=== PATIENT | female | born 1975 | race African-American/Black ===

== ENCOUNTER 2019-09-03 07:15 | Emergency (ER) | payer BC ==
[2019-09-03] MEDS ORDERED: METHYLPREDNISOLONE 125 MG INJ ONE (07:33)
[2019-09-03 07:52] LABS: Absolute Lymphocytes (CBC) 1.3 K/uL (0.7-4.9); Basophils % 1.1 % (0-1.3); Lymphocytes % 27.4 % (15.3-44.8); MPV 8.9 fL (7.6-11.3); Protime INR 1.15
[2019-09-03 08:06] LABS: ALT/SGPT 20 U/L (12-78); AST/SGOT 14 U/L (15-37); Albumin 3.7 g/dL (3.4-5.0); Alkaline Phosphatase 49 U/L (45-117); BUN Blood Urea Nitrogen 9 mg/dL (7-18); Bicarbonate 23 mmol/L (21-32); Bilirubin Direct 0.1 mg/dL (0-0.2); Bilirubin Total 0.6 mg/dL (0.2-1.0); Glucose Level 119 mg/dL (74-106); Magnesium 2.1 mg/dL (1.8-2.4); NT PRO-BNP 18 pg/mL (<125); Potassium 3.3 mmol/L (3.5-5.1); Protein, Total 8.1 g/dL (6.4-8.2); Sodium Level 141 mmol/L (136-145); Troponin (Emerg Dept Use Only) < 0.02 ng/mL (0.0-0.045)
--- NOTE | 2019-09-03 08:20 | RAD REPORT ---
EXAM DESCRIPTION: Breanna Single View09/03/2019 7:49 am CLINICAL HISTORY: Chest pain COMPARISON: none FINDINGS: The lungs appear clear of acute infiltrate. The heart is normal size IMPRESSION: No acute abnormalities displayed
--- NOTE | 2019-09-03 08:53 | RAD REPORT ---
EXAM DESCRIPTION: USCarotid Artery Bilateral09/03/2019 8:30 am CLINICAL HISTORY: Syncope COMPARISON: None FINDINGS: The velocity of the right internal carotid artery equals 119 cm/sec. The right ICA/CCA rat io 1.2 The velocity of the left internal carotid artery equals 106 cm/sec. The left ICA/CCA ratio 1.2 Plaque is not visualized within the carotid arteries The vertebral arteries demonstrate antegrade flow IMPRESSION: Unremarkable examination NASCET criteria used. Mild 0-49% stenosis Moderate 50-69% stenosis Severe 70-99% stenosis
--- NOTE | 2019-09-03 09:25 | ER ---
Nurse's Notes [facility] Name: Kitty Salas Age: 44 yrs Sex: Female : 1975 Arrival Date: 09/03/2019 Time: 07:15 Bed 13 Private MD: Nael Woods V Diagnosis: Chest pain, unspecified Presentation: 09/03 07:23 Presenting complaint: Substernal chest pain that radiates to left upper chest and jaw x hb 3 days. Pt reports she was seen by Dr. Woods 2 days ago for same s/s, told she had abnormal EKG, sent for blood work and started on Zoloft. Transition of care: patient was not received from another setting of care. Onset of symptoms was August 31, 2019. Risk Assessment: Do you want to hurt yourself or someone else? Patient reports no desire to harm self or others. Initial Sepsis Screen: Does the patient meet any 2 criteria? No. Patient's initial sepsis screen is negative. Does the patient have a suspected source of infection? No. Patient's initial sepsis screen is negative. Care prior to arrival: None. 07:23 Method Of Arrival: Ambulatory hb 07:23 Acuity: JADE 3 hb Triage Assessment: 09:58 General: Appears Behavior is calm. Pain: Denies pain. 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 - Social history:: Smoking status: Patient/guardian denies using tobacco. - Ebola Screening: : No symptoms or risks identified at this time. Screenin:16 Abuse screen: Denies threats or abuse. Denies injuries from another. Nutritional iw screening: No deficits noted. Tuberculosis screening: No symptoms or risk factors identified. Fall Risk Assessment: 07:50 General: Appears in no apparent distress. well groomed, well developed, well nourished, sg Behavior is calm, cooperative, appropriate for age. Pain: Complains of pain in anterior aspect of left upper chest Quality of pain is described as sharp. Neuro: Level of Consciousness is awake, alert, obeys commands, Oriented to person, place, time, Kennel Supervisor are equal bilaterally Speech is normal, Facial symmetry appears normal. Cardiovascular: Patient's skin is warm and dry. Chest pain is described as vague, is located in left anterior chest wall radiates jaw(s) neck. Respiratory: Airway is patent Respiratory effort is even, unlabored, Respiratory pattern is regular, symmetrical. GI: No signs and/or symptoms were reported involving the gastrointestinal system. : No signs and/or symptoms were reported regarding the genitourinary system. EENT: No signs and/or symptoms were reported regarding the EENT system. Derm: Skin is pink, warm \T\ dry. Musculoskeletal: No signs and/or symptoms reported regarding the musculoskeletal system. 08:44 Reassessment: Patient appears in no apparent distress at this time. Adele at bedside sg for ECHO. 09:15 Reassessment: Patient appears in no apparent distress at this time. Patient and/or iw family updated on plan of care and expected duration. Pain level reassessed. Patient is alert, oriented x 3, equal unlabored respirations, skin warm/dry/pink. pt awaiting results. Vital Signs: 07:25 BP 139 / 78; Pulse 55; Resp 16; Temp 97.8; Pulse Ox 100% on R/A; Weight 102.06 kg; hb Height 6 ft. 2 in. (187.96 cm); Pain 8/10; 09:30 BP 136 / 77; Pulse 56; Resp 17; Temp 97.7; Pulse Ox 100% on R/A; sg 07:25 Body Mass Index 28.89 (102.06 kg, 187.96 cm) ED Course: 07:15 Patient arrived in ED. rg4 07:15 Nael Woods MD is Private Physician. rg4 07:18 Brandon Mayo MD is Attending Physician. bertha 07:18 Paulino Dennis, EBONY is Primary Nurse. sg 07:24 Triage completed. hb 07:25 [facility] mh5 07:25 Arm band placed on. hb 07:48 XRAY Chest (1 view) In Process Unspecified. EDMS 08:13 Initial lab(s) drawn, by me, sent to lab. Inserted saline lock: 20 gauge in left mh5 antecubital area, using aseptic technique. Blood collected. 08:14 Patient has correct armband on for positive identification. Placed in gown. Bed in low mh5 position. Call light in reach. Side rails up X2. Warm blanket given. library monitor on. Pulse ox on. NIBP on. 08:30 Carotid Artery Bilateral US In Process Unspecified. EDMS 09:24 Nael Woods MD is Referral Physician. snw 09:57 No provider procedures requiring assistance completed. IV discontinued, intact, iw bleeding controlled, No redness/swelling at site. Pressure dressing applied. Patient maintains SpO2 saturation greater than 95% on room air. Administered Medications: No medications were administered Outcome: 09:25 Discharge ordered by . snw 09:57 Discharged to home ambulatory, with family. iw 09:57 Condition: good 09:57 Discharge instructions given to patient, family, Instructed on discharge instructions, follow up and referral plans. medication usage, Demonstrated understanding of instructions, follow-up care, medications, Prescriptions given X 1. 09:58 Patient left the ED. iw Signatures: Dispatcher [employer] EDMS Paulino Dennis, Brandon Cortez RN, MD MD cha Therrien, Shelly, NITROCELLULOSE MAKER-C NITROCELLULOSE MAKER-Csnw Diana Hand, Sophia Cavazos RN, RN RN hb Garcia, Rubi [place] [id number]
--- NOTE | 2019-09-03 09:25 | EDPHYS ---
Physician Documentation [facility] Name: Kitty Salas Age: 44 yrs Sex: Female : 1975 Arrival Date: 09/03/2019 Time: 07:15 Bed 13 Private MD: Nael Woods V ED Physician Brandon Mayo HPI: 09/03 08:34 This 44 yrs old Black Female presents to ER via Ambulatory with complaints of Chest snw Pain. 08:34 The patient or guardian reports chest pain that is located primarily in the anterior snw chest wall, left. Onset: gradually, 1 week(s) ago, and became persistent. The pain does not radiate. Associated signs and symptoms: Pertinent positives: lightheadedness. The chest pain is described as squeezing. Duration: The patient or guardian reports multiple episodes. Modifying factors: The symptoms are alleviated by nothing. Severity of pain: At its worst the pain was moderate in the emergency department the pain has improved. The patient has experienced a previous episode, last week, and the symptoms today are exactly the same, saw Dr. Woods, labs drawn, Mammo scheduled. The patient has been recently seen by a physician: the patient's primary care provider, Dr. Woods 1 week(s) ago. 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 - Social history:: Smoking status: Patient/guardian denies using tobacco. - Ebola Screening: : No symptoms or risks identified at this time. ROS: 08:32 Eyes: Negative for injury, pain, redness, and discharge, ENT: Negative for injury, snw pain, and discharge, Neck: Negative for injury, pain, and swelling, Respiratory: Negative for shortness of breath, cough, wheezing, and pleuritic chest pain, Abdomen/GI: Negative for abdominal pain, nausea, vomiting, diarrhea, and constipation, Back: Negative for injury and pain, : Negative for injury, bleeding, discharge, and swelling, MS/Extremity: Negative for injury and deformity, Skin: Negative for injury, rash, and discoloration, Neuro: Negative for headache, weakness, numbness, tingling, and seizure, felt "off" this am 08:32 Constitutional: Positive for fatigue, malaise. 08:32 Cardiovascular: Positive for chest pain, of the anterior aspect of left upper chest. Exam: 08:32 Constitutional: This is a well developed, well nourished patient who is awake, alert, snw and in no acute distress. Head/Face: Normocephalic, atraumatic. Eyes: Pupils equal round and reactive to light, extra-ocular motions intact. Lids and lashes normal. Conjunctiva and sclera are non-icteric and not injected. Cornea within normal limits. Periorbital areas with no swelling, redness, or edema. ENT: Nares patent. No nasal discharge, no septal abnormalities noted. Tympanic membranes are normal and external auditory canals are clear. Oropharynx with no redness, swelling, or masses, exudates, or evidence of obstruction, uvula midline. Mucous membranes moist. Neck: Trachea midline, no thyromegaly or masses palpated, and no cervical lymphadenopathy. Supple, full range of motion without nuchal rigidity, or vertebral point tenderness. No Meningismus. Chest/axilla: Normal chest wall appearance and motion. Nontender with no deformity. No lesions are appreciated. Cardiovascular: Regular rate and rhythm with a normal S1 and S2. No gallops, murmurs, or rubs. Normal PMI, no JVD. No pulse deficits. Respiratory: Lungs have equal breath sounds bilaterally, clear to auscultation and percussion. No rales, rhonchi or wheezes noted. No increased work of breathing, no retractions or nasal flaring. Abdomen/GI: Soft, non-tender, with normal bowel sounds. No distension or tympany. No guarding or rebound. No evidence of tenderness throughout. Back: No spinal tenderness. No costovertebral tenderness. Full range of motion. Skin: Warm, dry with normal turgor. Normal color with no rashes, no lesions, and no evidence of cellulitis. MS/ Extremity: Pulses equal, no cyanosis. Neurovascular intact. Full, normal range of motion. Neuro: Awake and alert, GCS 15, oriented to person, place, time, and situation. Cranial nerves II-XII grossly intact. Motor strength 5/5 in all extremities. Sensory grossly intact. Cerebellar exam normal. Normal gait. Psych: Awake, alert, with orientation to person, place and time. Behavior, mood, and affect are within normal limits. 08:32 ECG was reviewed by the Attending Physician. Vital Signs: 07:25 BP 139 / 78; Pulse 55; Resp 16; Temp 97.8; Pulse Ox 100% on R/A; Weight 102.06 kg; hb Height 6 ft. 2 in. (187.96 cm); Pain 8/10; 09:30 BP 136 / 77; Pulse 56; Resp 17; Temp 97.7; Pulse Ox 100% on R/A; sg 07:25 Body Mass Index 28.89 (102.06 kg, 187.96 cm) hb MDM: 07:18 Patient medically screened. bertha 09:25 The patient was not given aspirin in the Emergency Department. Patient reports taking snw aspirin within the past 24 hours. Data reviewed: vital signs, nurses notes, lab test result(s), EKG, radiologic studies. Data interpreted: Pulse oximetry: on room air is 100 %. Interpretation: normal. Counseling: I had a detailed discussion with the patient and/or guardian regarding: the historical points, exam findings, and any diagnostic results supporting the discharge/admit diagnosis, lab results, radiology results, the need for outpatient follow up, to return to the emergency department if symptoms worsen or persist or if there are any questions or concerns that arise at home. Special discussion: Based on the patient's history, exam, and Dx evaluation, there is no indication for emergent intervention or inpatient Tx. It is understood by the patient/guardian that if the Sx's persist or worsen they need to return immediately for re-evaluation. Based on the history and exam findings, there is no indication for further emergent testing or inpatient evaluation. I discussed with the patient/guardian the need to see the digital campaign manager for further evaluation of the symptoms. I discussed with the patient/guardian the need to see the primary care provider for further evaluation of the symptoms. 09/03 07:19 Order name: Basic Metabolic Panel; Complete Time: 08:21 bertha 09/03 07:19 Order name: CBC with Diff; Complete Time: 08:06 bertha 09/03 07:19 Order name: LFT's; Complete Time: 08:21 [facility] 09/03 07:19 Order name: Magnesium; Complete Time: 08:21 [facility] 09/03 07:19 Order name: NT PRO-BNP; Complete Time: 08:21 [facility] 09/03 07:19 Order name: PT-INR; Complete Time: 08:06 [facility] 09/03 07:19 Order name: Troponin (emerg Dept Use Only); Complete Time: 08:21 [facility] 09/03 07:19 Order name: XRAY Chest (1 view); Complete Time: 08:21 [facility] 09/03 07:19 Order name: EKG; Complete Time: 07:19 [facility] 09/03 07:28 Order name: TSH; Complete Time: 08:21 [facility] 09/03 07:29 Order name: Echo w/ Doppler [facility] 09/03 07:30 Order name: Carotid Artery Bilateral US; Complete Time: 09:01 [facility] 09/03 07:33 Order name: [place] Screen Profile; Complete Time: 08:21 [facility] 09/03 07:19 Order name: Cardiac monitoring; Complete Time: 07:30 [facility] 09/03 07:19 Order name: EKG - Nurse/Tech; Complete Time: 07:30 [facility] 09/03 07:19 Order name: IV Saline Lock; Complete Time: 08:15 [facility] 09/03 07:19 Order name: Labs collected and sent; Complete Time: 08:15 [facility] 09/03 07:19 Order name: O2 Per Protocol; Complete Time: 08:48 [facility] 09/03 07:19 Order name: O2 Sat Monitoring; Complete Time: 08:48 [facility] Administered Medications: No medications were administered Disposition: 15:11 Co-signature as Attending Physician, Brandon Mayo MD I agree with the assessment and [facility] plan of care. Disposition: 09/03/19 09:25 Discharged to Home. Impression: Chest pain, unspecified. - Condition is Stable. - Discharge Instructions: Nonspecific Chest Pain, Aspirin and Your Heart. - Prescriptions for Protonix 40 mg Oral Tablet - take 1 tablet by ORAL route once daily; 30 tablet. - Work release form, Medication Reconciliation Form, Thank You Letter, Antibiotic Education, Prescription Opioid Use form. - Follow up: Emergency Department; When: As needed; Reason: Worsening of condition. Follow up: Nael Woods MD; When: 2 - 3 days; Reason: Recheck today's complaints, Continuance of care, Re-evaluation by your physician. Signatures: Dispatcher [employer] EDBrandon Spencer MD MD cha Therrien, Shelly, HEMMER CHAINSTITCH-C HEMMER CHAINSTITCH-Csnw Diana Hand, EBONY RN iw Sophia Man RN RN Corrections: (The following items were deleted from the chart) 09:58 09:25 09/03/2019 09:25 Discharged to Home. Impression: Chest pain, unspecified. iw Condition is Stable. Forms are Medication Reconciliation Form, Thank You Letter, Antibiotic Education, Prescription Opioid Use. Follow up: Emergency Department; When: As needed; Reason: Worsening of condition. Follow up: Nael Woods; When: 2 - 3 days; Reason: Recheck today's complaints, Continuance of care, Re-evaluation by your physician. snw
[2019-09-03 10:11] VITALS: BP 139/78; TEMP 97.8; O2SAT 100
--- NOTE | 2019-09-04 06:38 | EKG ---
Test Date: 2019-09-03 Test Time: 07:27:33 Powerhouse Mechanic Supervisor: SALOME MEASUREMENT RESULTS: Intervals: Rate: 51 NC: 160 QRSD: 84 QT: 440 QTc: 405 Clune: P: NC: 160 QRS: -27 T: -18 INTERPRETIVE STATEMENTS: Sinus bradycardia T wave abnormality, consider anterior ischemia Abnormal ECG No previous ECG available for comparison Electronically Signed On 09-04-19 06:36:11 MANGLE ROLL OPERATOR by Marques Carl
--- NOTE | 2019-09-06 09:02 | ECHO ---
HEIGHT: 6 ft 2 in WEIGHT: 225 lb 0 oz DATE OF STUDY: 09/03/[address]: Brittany Freeman PROCESS CONTROLLER-BC 2-DIMENSIONAL: YES M.MODE: YES DOPPLER: YES COLOR FLOW: YES TDS: NO PORTABLE: YES DEFINITY: NO BUBBLE STUDY: NO DIAGNOSIS: CHEST PAIN CARDIAC HISTORY: CATHERIZATION: NO SURGERY: NO PROSTHETIC VALVE: NO PACEMAKER: NO MEASUREMENTS (cm) DIASTOLIC (NORMALS) SYSTOLIC (NORMALS) IVSd 1.1 (0.6-1.2) LA Diam 3.1 (1.9-4.0) LVEF 71% LVIDd 4.8 (3.5-5.7) LVIDs 2.9 (2.0-3.5) %FS 40% LVPWd 1.2 (0.6-1.2) Ao Diam 3.0 (2.0-3.7) 2 DIMENSIONAL ASSESSMENT: RIGHT ATRIUM: NORMAL LEFT ATRIUM: NORMAL RIGHT VENTRICLE: NORMAL LEFT VENTRICLE: NORMAL TRICUSPID VALVE: NORMAL MITRAL VALVE: NORMAL PULMONIC VALVE: NORMAL AORTIC VALVE: NORMAL PERICARDIAL EFFUSION: NONE AORTIC ROOT: NORMAL LEFT VENTRICULAR WALL MOTION: NORMAL DOPPLER/COLOR FLOW: MILD TRICUSPID REGURGITATION. COMMENTS: MILD TRICUSPID REGURGITATION. NORMAL RIGHT VENTRICULAR SYSTOLIC PRESSURE. NORMAL LEFT VENTRICULAR SIZE AND FUNCTION. NO WALL MOTION ABNORMALITY. NO EFFUSION. TECHNOLOGIST: Darwin GRAJEDA
== END 2019-09-03 09:58 | disposition home or self-care (01) ==
LOC: ER 07:15
DX: R07.9 Chest pain, unspecified (principal)
CPT/HCPCS: 93005; 93306; 85025; 80048; 36415; 83735; 86308; 85610; 80076; 84443; 84484; 83880; 71045; 93880; 99285; J2930

== ENCOUNTER 2020-07-09 19:13 | Emergency (ER) | payer OTHER, BC ==
[2020-07-09] MEDS ORDERED: MORPHINE 2 MG/ML SYR ONE (20:08)
[2020-07-09 20:15] LABS: Urine Blood 1+ (NEG); Urine Glucose NEGATIVE (NEG); Urine Protein NEGATIVE (NEG); Urine Specific Gravity >1.030 (1.005-1.030); Urine pH 6.5 (5.0-7.0)
[2020-07-09 20:24] LABS: Absolute Lymphocytes (CBC) 2.5 K/uL (0.7-4.9); Basophils % 1.5 % (0-1.3); Hematocrit 37.3 % (36.0-45.0); MPV 10.6 fL (7.6-11.3); RBC Red Blood Cell Count 4.17 M/uL (3.86-4.86)
[2020-07-09 21:18] LABS: ALT/SGPT 20 U/L (12-78); AST/SGOT 15 U/L (15-37); Albumin 3.5 g/dL (3.4-5.0); Alkaline Phosphatase 52 U/L (45-117); BUN Blood Urea Nitrogen 16 mg/dL (7-18); Bicarbonate 28 mmol/L (21-32); Bilirubin Direct < 0.1 mg/dL (0-0.2); Bilirubin Total 0.2 mg/dL (0.2-1.0); Glucose Level 91 mg/dL (74-106); Potassium 3.6 mmol/L (3.5-5.1); Protein, Total 7.7 g/dL (6.4-8.2); Sodium Level 142 mmol/L (136-145)
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
[2020-07-10] MEDS ORDERED: MORPHINE 4 MG/ML SYR ONE (00:02)
[2020-07-10 05:37] VITALS: TEMP 98.7
[2020-07-10 05:40] VITALS: O2SAT 99
[2020-07-10 05:41] VITALS: BP 112/72
== END 2020-07-10 00:08 | disposition short-term general hospital (02) ==
LOC: ER 19:13
DX: S36.113A Laceration of liver, unspecified degree, initial encounter (principal); V49.40XA Driver injured in collision with unspecified motor vehicles in traffic accident, initial encounter
CPT/HCPCS: 85025; 80048; 36415; 86900; 86850; 85610; 82565; 86901; 80076; 85730; 81003; 70450; 72125; 71260; 74177; Q9967; J2270; 96374; 99285

== ENCOUNTER 2020-12-28 07:04 | Day surgery (SDC) | payer BC ==
[2020-12-27 15:48] LABS: Absolute Lymphocytes (CBC) 2.2 K/uL (0.7-4.9); Basophils % 1.2 % (0-1.3); Hematocrit 38.9 % (36.0-45.0); Lymphocytes % 31.4 % (15.3-44.8); MPV 9.6 fL (7.6-11.3)
--- NOTE | 2020-12-27 15:58 | RAD REPORT ---
EXAM DESCRIPTION: RADChest Pa And Lat (2 Views)12/27/2020 3:22 pm CLINICAL HISTORY: Preop gallbladder surgery COMPARISON: 2019 FINDINGS: Mildly prominent opacity lower right paratracheal region. Lungs appear clear. The heart is normal size IMPRESSION: Mildly prominent opacity right lower paratracheal region may represent pulmonary artery or lymphadenopathy. CT chest with IV contrast is recommended
[2020-12-27 16:10] LABS: ALT/SGPT 21 U/L (12-78); AST/SGOT 13 U/L (15-37); Albumin 3.6 g/dL (3.4-5.0); Alkaline Phosphatase 64 U/L (45-117); Amylase 78 U/L (25-115); BUN Blood Urea Nitrogen 15 mg/dL (7-18); Bicarbonate 26 mmol/L (21-32); Bilirubin Direct < 0.1 mg/dL (0-0.2); Bilirubin Total 0.4 mg/dL (0.2-1.0); Glucose Level 85 mg/dL (74-106); Potassium 3.9 mmol/L (3.5-5.1); Protein, Total 8.3 g/dL (6.4-8.2); Sodium Level 140 mmol/L (136-145)
[2020-12-27 16:59] LABS: Specific Gravity 1.025 (1.005-1.030)
[2020-12-28] MEDS ORDERED: Ringers Lactate 1,000 ML IV ONE (07:57)
[2020-12-28] MEDS ORDERED: CEFOXITIN/SWI 1gm 1 GM/10 ML SYR ONE (08:14)
[2020-12-28] MEDS ORDERED: propofoL 200 MG/20 ML VIAL IV ONE (08:55)
[2020-12-28] MEDS ORDERED: ROCURONIUM 50 MG/5 ML VIAL IV ONE (08:55)
[2020-12-28] MEDS ORDERED: FENTANYL CITR 100 MCG/2 ML ONE (08:55)
[2020-12-28] MEDS ORDERED: MIDAZOLAM HCL 2 MG/2 ML INJ ONE (08:55)
[2020-12-28] MEDS ORDERED: LIDOCAINE 1% MPF 5 ML VIAL ONE (08:55)
[2020-12-28] MEDS ORDERED: GLYCOPYRROLATE 0.2 MG/ML SYR ONE (09:26)
[2020-12-28] MEDS ORDERED: NEOSTIGMINE 1 MG/ML -5 ML ONE (09:27)
[2020-12-28] MEDS ORDERED: dexAMETHasone 10 MG/ML VIAL ONE (09:27)
[2020-12-28] MEDS ORDERED: KETOROLAC 30 MG/ML INJ ONE (09:27)
[2020-12-28] MEDS ORDERED: ONDANSETRON 4 MG/2 ML VIAL ONE (09:27)
[2020-12-28] MEDS ORDERED: EPHEDRINE SULF 50 MG/ML VIAL ONE (09:33)
[2020-12-28] MEDS ORDERED: NS 0.9% VIAL 10 ML ONE (09:33)
[2020-12-28 10:16] VITALS: O2SAT 100
[2020-12-28] MEDS ORDERED: PROMETHAZINE INJ 25 MG/ML AMP ONE (10:22)
[2020-12-28] MEDS ORDERED: HYDROMORPHONE HCL 1 MG/ML INJ ONE (10:23)
[2020-12-28] MEDS ORDERED: HYDROCODONE/APAP 7.5/325 MG TAB ONE (11:31)
[2020-12-28 14:06] VITALS: BP 112/70; TEMP 98.3
--- NOTE | 2020-12-28 21:29 | OP ---
Date of Procedure: 12/28/2020 Surgeon: Bienvenido Oropeza MD Systems Designer: MADI Borrero. Preoperative Diagnosis: Chronic cholecystitis. Postoperative Diagnosis: Chronic cholecystitis, questionable . Procedure Performed: Laparoscopic cholecystectomy. Estimated Blood Loss: Minimal. Specimen: Gallbladder. Findings: As above. Anesthesia: General. Complications: None. Disposition: The patient tolerated the procedure in stable condition, taken to Recovery in good gene ral condition. Procedure In Detail: The patient was brought to the OR and placed in supine position. General anest hesia begun. The patient was prepped and draped in the usual sterile fashion. Marcaine 0.5% was inf iltrated locally. A 15 blade was used to make a 1 cm supraumbilical midline incision. Subcutaneous tissue was divided. Fascia was identified and divided. #1 Vicryl stay suture was placed. Peritonea l cavity was entered with sharp and blunt dissection. A 12-mm trocar was placed into the peritoneal cavity under direct vision. Pneumoperitoneum was established and then laparoscopy revealed extensive adhesions on the right lobe of the liver. It appeared that the right lobe was attached to the perit pagan surface. There was no bowel involvement, and this was from a previous injury patient had. The gallbladder itself was on the left side of the falciform ligament, which was unusual. It either cou ld be from the trauma patient had or it could be some form of it. In either way, left upp er quadrant 5 mm trocar was placed under direct vision and a right paramedian 5 mm trocar was placed. Then, the gallbladder was identified and fundus was retracted superiorly. Infundibulum was identif ied and retracted inferolaterally. Cystic duct and cystic artery were clearly identified with blunt dissection. Clips were placed. Both structures were divided. Cautery was used to remove the gallbl adder from the liver bed. Bleeding on the liver bed was controlled with cautery. Gallbladder was re trieved through the umbilicus via an EndoCatch bag, and then the gallbladder fossa was examined caref ully. No evidence of bleeding or bile leakage appreciated. Subsequently, all trocars were removed u nder direct vision. Stay sutures were tied to each other to reapproximate the fascial defect. Subcu taneous wounds were irrigated. Bleeding was controlled with cautery. A 3-0 chromic was used to reap proximate the subcutaneous tissue and alexus were used to close the skin. Sterile dressing was appl ied. The patient was awakened and taken to Recovery in good general condition. Discharge Note: The patient will go to Day Surgery and home when stable. Disposition: Home. Condition: Stable. Discharge Instructions: Resume home medications and diet. Activity as tolerated. No heavy lifting. Remove outer dressing in 2 days. Shower. Keep wound clean and dry. Follow up in my office in one week. Call for appointment. Tylenol No. 3 one tablet p.o. q.4 p.r.n. pain. Keep Steri-Strips on a t all times. Incentive spirometry as ordered. /MODL Voice ID: [id number] Report ID: [id number]
== END 2020-12-28 13:00 | disposition home or self-care (01) ==
LOC: OR 07:04
PROVIDERS: ATTEND Surgery
PROC: 0FT44ZZ Resection of Gallbladder, Percutaneous Endoscopic Approach (ICD-10-PCS; principal; 2020-12-28 08:00)
DX: K80.10 Calculus of gallbladder with chronic cholecystitis without obstruction (principal); Z20.822 Contact with and (suspected) exposure to COVID-19
CPT/HCPCS: 93005; 85025; 80048; 36415; 82150; 81025; 80076; 88304; 71046; 47562; U0003; J2704; J2550; J2250; J3010; J1100; J1170; J2710; J7120; J2405